=== PATIENT | female | born 1955 | race Caucasian/White ===

== ENCOUNTER 2017-04-17 06:31 | Emergency (ER) | payer BC ==
[2017-04-17] MEDS ORDERED: Ondansetron HCl/PF 4 MG/2 ML Vial ONE (06:46)
[2017-04-17 07:19] LABS: Band 4 % (5-11); Hemoglobin 12.8 g/dL (12.0-16.0); Lymphocytes 11 % (21-51); MDiff Complete? YES; Mean Corpuscular Hemoglobin 29.2 pg (27.0-31.0); Mean Corpuscular Volume 83.4 fl (81.0-99.0); Monocytes 4 % (0-10); Neutrophil 81 % (42-75); PLT Morphology Comment Appears Adequate; Platelet Count 237 thou/uL (130-400); RBC Distribution Width 11.1 % (11.5-14.5); RBC Morphology Normal; Red Blood Cell (RBC) Count 4.37 mill/uL (4.20-5.40)
[2017-04-17 07:33] LABS: ALT (SGPT) 17 U/L (8-55); AST (SGOT) 20 U/L (5-34); Albumin 4.1 g/dL (3.4-4.8); Alkaline Phosphatase 68 U/L (40-150); Anion Gap 22 mmol/L (10-20); BUN (Urea Nitrogen) 15 mg/dL (9.8-20.1); Bilirubin, Total 0.9 mg/dL (0.2-1.2); CK (CPK) 118 U/L (29-168); Calc. Creatinine Clearance 0 mL/min (70-130); Calcium 9.7 mg/dL (7.8-10.44); Carbon Dioxide 18 mmol/L (23-31); Chloride 97 mmol/L (98-107); Estimated GFR-MDRD 61; Globulin 3.5 g/dL (2.4-3.5); Glucose 142 mg/dL (80-115); Lipase 20 U/L (8-78); Potassium 3.6 mmol/L (3.5-5.1); Protein, Total 7.6 g/dL (6.0-8.3); Sodium 133 mmol/L (136-145)
[2017-04-17] MEDS ORDERED: Iopamidol 370 76% 100 ML VIAL ONE (09:00)
[2017-04-17] MEDS ORDERED: Sodium Chloride 0.9% 1,000 ML ONE (09:16)
[2017-04-17] MEDS ORDERED: Lidocaine Viscous Sol 2% 15 ml UD Cup ONE (09:16)
--- NOTE | 2017-04-17 09:54 | CT ---
CT ABDOMEN AND PELVIS WITH IV CONTRAST: Date: 04/17/17 HISTORY: Nausea, vomiting, lower abdominal pain. FINDINGS: There are mild dependent changes in the lung bases. A small hiatal hernia is present. The liver, spl een, pancreas, left adrenal gland, and kidneys are normal. No calcified gallstones are seen. There is a 2.5 cm right adrenal nodule which demonstrates attenuation values of 55 Hounsfield units. This should be evaluated with a dedicated CT scan of the abdomen with and without IV contrast to de termine washout and better characterize this mass. No free air or lymphadenopathy is seen. There is a tiny amount of free fluid in the right lower abdo men. A dilated loop of small bowel is seen with normal caliber proximal and distal loops. IMPRESSION: 1. Findings are suspicious for closed loop small bowel obstruction. 2. Hiatal hernia. 3. Indeterminate right adrenal mass. This should be evaluated with a dedicated CT scan of the abdom en using adrenal protocol. POS: [place]
== END 2017-04-17 10:28 | disposition short-term general hospital (02) ==
LOC: NAV ERS 06:31
DX: K56.60 Unspecified intestinal obstruction (principal); I10 Essential (primary) hypertension; Z85.3 Personal history of malignant neoplasm of breast; Z79.899 Other long term (current) drug therapy
CPT/HCPCS: 36415; 74177; 80053; 82550; 83690; 85025; 96361; 96374; 96375; J2270; J2405; J7050